=== PATIENT | male | born 1990 | race Caucasian/White ===

== ENCOUNTER 2017-02-09 12:18 | Emergency (ER) | payer BC ==
[~2017-02-09] VITALS: Ht 193 cm; Wt 144.0 kg
[2017-02-09] MEDS ORDERED: ERYTHROMYC1 APPLICAT LEFT EYE (13:38)
[2017-02-09 13:57] VITALS: BP 123/87
== END 2017-02-09 13:58 | disposition home or self-care (01) ==
LOC: EME 12:18
DX: S05.02XA Injury of conjunctiva and corneal abrasion without foreign body, left eye, initial encounter (principal)
CPT/HCPCS: 99281; 99283